=== PATIENT | male | born 1980 | race Caucasian/White ===

== ENCOUNTER 2018-11-17 08:59 | Outpatient (CLI) | payer OTHER ==
[2018-11-17 09:24] LABS: MEAN CORPUSCULAR HEMOGLOBIN 28.7 pg (28.0-34.0)
[2018-11-17 09:25] LABS: BASOPHILS % 0.5 (0.0-1.5); EOSINOPHILS % 6.4 % (0.0-6.8); MONOCYTES % 7.2 % (0.0-11.0); NEUTROPHILS # 3.7 # k/uL (1.4-7.7)
[2018-11-17 09:43] LABS: eGFR (Non-African) > 60
== END 2018-11-17 09:10 ==
LOC: LAB 08:59
PROVIDERS: ATTEND Family Medicine
DX: D64.9 Anemia, unspecified (principal); E78.5 Hyperlipidemia, unspecified
CPT/HCPCS: 36415; 80053; 80061; 85025